=== PATIENT | male | born 1995 ===

== ENCOUNTER 2017-05-01 06:55 | Emergency (ER) | payer MEDICAID ==
[2017-05-01 07:46] VITALS: BP 104/95; PULSE 55; RESP 16; TEMP 98; O2SAT 98
--- NOTE | 2017-05-01 08:06 | ED PDOC ---
HPI: Skin/Bite Injury Time Seen by Provider: 05/01/17 07:16 Chief Complaint (Nursing): Abnormal Skin Integrity Chief Complaint (Provider): Rash History Per: Patient History/Exam Limitations: no limitations Onset/Duration Of Symptoms: Days (x14) Current Symptoms Are (Timing): Still Present Additional Complaint(s): Doug Sanderson is a 21 year old male presenting to the ED for an evaluation of a rash to his bilateral hands and bilateral feet occurring for 2 weeks prior to arrival. The patient reports his younger brother was diagnosed with Scabies which affected the and his as well. Patient's is being treated at the same time for the same symptoms in this ED by me. The patient reports redness and itchiness to the affected areas. PMD: TBD Past Medical History Reviewed: Historical Data, Nursing Documentation, Vital Signs Vital Signs: Last Vital Signs Temp 98.0 F 05/01/17 07:28 Pulse 55 L 05/01/17 07:28 Resp 16 05/01/17 07:28 BP 104/95 H 05/01/17 07:28 Pulse Ox 98 05/01/17 11:10 - Medical History PMH: No Chronic Diseases - Surgical History Surgical History: No Surg Hx - Family History Family History: States: No Known Family Hx - Social History Current smoker - smoking cessation education provided: No Ex-Smoker (has not smoked in the last 12 months): No Alcohol: None Drugs: Denies - Home Medications Home Medications: Ambulatory Orders Medication Instructions Recorded Permethrin 5% [Permethrin 5% Cream] 1 applic TOP ONCE #1 tube 05/01/17 - Allergies Allergies/Adverse Reactions: Allergies Allergy/AdvReac Type Severity Reaction Status Date / Time No Known Allergies Allergy Verified 05/01/17 07:26 Review of Systems ROS Statement: Except As Marked, All Systems Reviewed And Found Negative Constitutional: Negative for: Fever, Chills Gastrointestinal: Negative for: Vomiting Skin: Positive for: Rash (to bilateral hands and bilateral feet with itchiness and redness) Physical Exam - Reviewed Nursing Documentation Reviewed: Yes Vital Signs Reviewed: Yes - Physical Exam Appears: Positive for: Non-toxic, No Acute Distress Head Exam: Positive for: ATRAUMATIC, NORMOCEPHALIC Skin: Positive for: Warm, Dry, Rash (multiple papules present on bilateral feet and bilateral hands with mild erythema ) Eye Exam: Positive for: Normal appearance, EOMI Cardiovascular/Chest: Positive for: Regular Rate, Rhythm. Negative for: Edema, Murmur Respiratory: Negative for: Respiratory Distress Extremity: Positive for: Normal ROM Neurologic/Psych: Positive for: Alert, Oriented (x3) - ECG O2 Sat by Pulse Oximetry: 98 (RA) Pulse Ox Interpretation: Normal Medical Decision Making Medical Decision Making: Time: 07:16 Impression: Scabies Plan: Discussed with pt exact outpatient treatment of Scabies, will speak to patients , and pt will be given rx. Scribe Attestation: Documented by Kimberly Amanda, acting as a scribe for Parisa Mai MD. Provider Scribe Attestation: All medical record entries made by the Scribe were at my direction and personally dictated by me. I have reviewed the chart and agree that the record accurately reflects my personal performance of the history, physical exam, medical decision making, and the department course for this patient. I have also personally directed, reviewed, and agree with the discharge instructions and disposition. Disposition - Clinical Impression Clinical Impression: Scabies - Patient ED Disposition Is Patient to be Admitted: No Doctor Will See Patient In The: Office Counseled Patient/Family Regarding: Studies Performed, Diagnosis, Need For Followup - Disposition Referrals: [facility] [Outside] Disposition: Routine/Home Disposition Time: 07:50 Condition: GOOD Additional Instructions: Use medications as instructed. Take benadryl fo itching. Wash and change your clothes and linens. Other affected family members need to be treated as well by their PCP. Prescriptions: Permethrin 5% [Permethrin 5% Cream] 1 applic TOP ONCE #1 tube Instructions: Permethrin (On the skin), Scabies (ED) Forms: [employer] ([place])
== END 2017-05-01 07:57 | disposition home or self-care (01) ==
LOC: H.ER 06:55
DX: B86 Scabies (principal)

== ENCOUNTER 2017-05-08 02:53 | Emergency (ER) | payer MEDICAID ==
[2017-05-08 03:09] VITALS: BMI 14.8
[2017-05-08 03:12] VITALS: BP 112/60; PULSE 58; RESP 18; TEMP 98.2; O2SAT 98
--- NOTE | 2017-05-08 03:24 | ED PDOC ---
HPI: Wound Care - HPI Time Seen by Provider: 05/08/17 03:15 Chief Complaint (Nursing): Abnormal Skin Integrity Chief Complaint (Provider): cyst on buttock History Per: Patient History Of Present Illness: 21 y/o male presents for eval of lump to right buttock x 2 days. Patient states tonight after showering he scratched the area and it began bleeding, which prompted ED visit. Denies fever, pain to site, drainage from site. Past Medical History Reviewed: Historical Data, Nursing Documentation, Vital Signs Vital Signs: Last Vital Signs Temp 98.2 F 05/08/17 03:09 Pulse 58 L 05/08/17 03:09 Resp 18 05/08/17 03:09 BP 112/60 05/08/17 03:09 Pulse Ox 98 05/08/17 03:09 - Medical History PMH: No Chronic Diseases - Surgical History Surgical History: No Surg Hx - Family History Family History: States: No Known Family Hx - Living Arrangements Living Arrangements: With Family - Home Medications Home Medications: Ambulatory Orders Medication Instructions Recorded Permethrin 5% [Permethrin 5% Cream] 1 applic TOP ONCE #1 tube 05/01/17 Clindamycin [Cleocin] 300 mg PO QID #28 cap 05/08/17 Ibuprofen [Motrin Tab] 1 tab PO Q6 PRN #20 tab 05/08/17 - Allergies Allergies/Adverse Reactions: Allergies Allergy/AdvReac Type Severity Reaction Status Date / Time No Known Allergies Allergy Verified 05/08/17 03:08 Review of Systems ROS Statement: Except As Marked, All Systems Reviewed And Found Negative Skin: Positive for: Lesions (right buttock) Physical Exam - Reviewed Nursing Documentation Reviewed: Yes Vital Signs Reviewed: Yes - Physical Exam Appears: Positive for: Well, Non-toxic, No Acute Distress Back: Positive for: Normal Inspection, Other (2cm nonfluctuant mass noted superiorly and to the right of intergluteal cleft with central nondraining/ scabbed lesion. No tenderness, surrounding erythema, temp change noted) Extremity: Positive for: Normal ROM - ECG O2 Sat by Pulse Oximetry: 98 - Progress ED Course And Treament: Patient educated on findings, discharged with rx Ibuprofen, Clindamycin. Advised warm compresses. Follow up PMD 2-3 days. Return precautions given. Disposition - Clinical Impression Clinical Impression: Abscess of buttock, right - Patient ED Disposition Is Patient to be Admitted: No Counseled Patient/Family Regarding: Diagnosis, Need For Followup, Rx Given - Disposition Disposition: Routine/Home Disposition Time: 03:29 Condition: STABLE Additional Instructions: Apply warm compresses to affected area 4-5 times daily. take medications as directed. Follow up with primary doctor in 2-3 days. Return to ED for worsening/concerning symptoms. Prescriptions: Clindamycin [Cleocin] 300 mg PO QID #28 cap Ibuprofen [Motrin Tab] 1 tab PO Q6 PRN #20 tab PRN Reason: Pain, Moderate (4-7) Instructions: Abscess (ED)
== END 2017-05-08 03:50 | disposition home or self-care (01) ==
LOC: H.ER 02:53
DX: L02.31 Cutaneous abscess of buttock (principal)

== ENCOUNTER 2017-07-25 22:31 | Emergency (ER) | payer MEDICAID ==
[2017-07-25 22:31] VITALS: BMI 14.8
[2017-07-25 22:38] VITALS: BP 117/70; PULSE 55; RESP 18; TEMP 98.9; O2SAT 99
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
== END 2017-07-26 00:08 | disposition home or self-care (01) ==
LOC: H.ER 22:31
DX: S16.1XXA Strain of muscle, fascia and tendon at neck level, initial encounter (principal); S09.90XA Unspecified injury of head, initial encounter; W51.XXXA Accidental striking against or bumped into by another person, initial encounter

== ENCOUNTER 2017-09-14 22:27 | Emergency (ER) | payer SELFPAY ==
[2017-09-14 22:27] VITALS: BMI 14.8
[2017-09-14 22:37] VITALS: BP 105/60; PULSE 68; RESP 18; TEMP 98.8; O2SAT 97
--- NOTE | 2017-09-14 22:53 | ED PDOC ---
HPI: Abdomen Time Seen by Provider: 09/14/17 22:40 Chief Complaint (Nursing): Fever History Per: Patient History/Exam Limitations: no limitations Onset/Duration Of Symptoms: Days Outside of [place] travel?: No Location Of Pain/Discomfort: Epigastric Additional Complaint(s): No PMHx presenting with diarrhea, states he ate shredded beef with lettuce at [email or web address] where he works on Wednesday, since then has had between 4-6 episodes of nonbloody, nonbilious diarrhea, one episode of vomiting last night. States he ate eggs today and felt full quickly, decreased appetite. Fever 3 days ago to 101, but none since. No recent travel, no sick contacts, no abdominal surgeries , no recent antibiotic use. Past Medical History Reviewed: Historical Data, Nursing Documentation, Vital Signs Vital Signs: Last Vital Signs Temp 98.8 F 09/14/17 22:34 Pulse 68 09/14/17 22:34 Resp 18 09/14/17 22:34 BP 105/60 09/14/17 22:34 Pulse Ox 97 09/14/17 22:55 - Medical History PMH: No Chronic Diseases - Surgical History Surgical History: No Surg Hx - Family History Family History: States: Unknown Family Hx - Home Medications Home Medications: Ambulatory Orders Medication Instructions Recorded Permethrin 5% [Permethrin 5% Cream] 1 applic TOP ONCE #1 tube 05/01/17 Clindamycin [Cleocin] 300 mg PO QID #28 cap 05/08/17 Ibuprofen [Motrin Tab] 1 tab PO Q6 PRN #20 tab 05/08/17 Ibuprofen [Motrin] 600 mg PO Q8 PRN #9 tab 07/25/17 Lactobacillus Acidophilus 1 each PO DAILY #7 tablet 09/14/17 [Probiotic Acidophilus] Ondansetron ODT [Zofran ODT] 4 mg PO Q8 PRN #12 odt 09/14/17 - Allergies Allergies/Adverse Reactions: Allergies Allergy/AdvReac Type Severity Reaction Status Date / Time No Known Allergies Allergy Verified 05/08/17 03:08 Review of Systems ROS Statement: Except As Marked, All Systems Reviewed And Found Negative Constitutional: Positive for: Fever Gastrointestinal: Positive for: Nausea, Abdominal Pain, Diarrhea Physical Exam - Reviewed Nursing Documentation Reviewed: Yes Vital Signs Reviewed: Yes - Physical Exam Appears: Positive for: Well, Non-toxic, No Acute Distress Head Exam: Positive for: ATRAUMATIC, NORMAL INSPECTION, NORMOCEPHALIC Skin: Positive for: Normal Color, Warm, DRY Eye Exam: Positive for: EOMI, Normal appearance, PERRL ENT: Positive for: Normal ENT Inspection Neck: Positive for: Normal, Painless ROM Cardiovascular/Chest: Positive for: Regular Rate, Rhythm Respiratory: Positive for: CNT, Normal Breath Sounds Gastrointestinal/Abdominal: Positive for: Normal Exam, Bowel Sounds, Soft. Negative for: Tenderness, Organomegaly, Mass, Distended, Guarding, Rebound Back: Positive for: Normal Inspection Extremity: Positive for: Normal ROM Neurologic/Psych: Positive for: Alert, Oriented - ECG O2 Sat by Pulse Oximetry: 97 Pulse Ox Interpretation: Normal Medical Decision Making Medical Decision MakinPM A/P: No PMHx presenting with diarrhea -patient is very well appearing with completely normal vital signs -likely viral enteritis, not concerned for dehydration -patient concerned about E.Coli because of Andriy lettuce ingestion, advised patient to provide stool sample for analysis -patient states he's feeling some nausea occasionally, will provide zofran and PO challenge -advised patient to followup with PMD in 2 days. 1130PM -Patient tolerating PO in ER -Very well appearing -Advised to followup as outpatient Disposition - Clinical Impression Clinical Impression: Diarrhea - Patient ED Disposition Is Patient to be Admitted: No - Disposition Referrals: [facility] [Outside] Disposition: Routine/Home Disposition Time: 23:37 Condition: GOOD Prescriptions: Lactobacillus Acidophilus [Probiotic Acidophilus] 1 each PO DAILY #7 tablet Ondansetron ODT [Zofran ODT] 4 mg PO Q8 PRN #12 odt PRN Reason: Nausea/Vomiting Instructions: Diarrhea in Adolescents and Adults Forms: [employer] (Puerto Rican)
== END 2017-09-15 00:05 | disposition home or self-care (01) ==
LOC: H.ER 22:27
DX: R19.7 Diarrhea, unspecified (principal)